=== PATIENT | male | born 1965 | race Caucasian/White ===

== ENCOUNTER 2017-04-08 10:43 | Inpatient (IN) ==
--- NOTE | 2017-04-08 07:36 | Discharge Summary ---
<Annamarie Sosa - Last Filed: 04/08/17 07:33> Date of Encounter: 04/08/17 - Discharge Diagnosis (1) Osteoarthritis of right hip Priority: Primary Status: Chronic Qualifiers: Osteoarthritis type: unspecified Qualified Code(s): M16.11 - Unilateral primary osteoarthritis, right hip (2) Tobacco dependence Priority: Secondary Status: Chronic (3) HLD (hyperlipidemia) Priority: Secondary Status: Chronic Qualifiers: Hyperlipidemia type: unspecified Qualified Code(s): E78.5 - Hyperlipidemia , unspecified (4) Status post total hip replacement, left Priority: Secondary Status: Chronic - Discharge Medications Home Medications: Aspirin Enteric Coated [Aspirin EC] 325 mg PO DAILY #20 tablet. 01/12/15 [Rx] OxyCODONE/APAP 10/325 [Percocet 10/325] 1 each PO Q6HR 01/17/15 [History] Aspirin Enteric Coated [Aspirin EC] 325 mg PO DAILY 21 Days #21 tablet. [Rx] Atorvastatin [Lipitor] 40 mg PO HS 04/08/17 [History] OxyCODONE Immed Rel [Roxicodone 5 MG] 5 mg PO Q6HR PRN 7 Days #28 tablet [Rx] Allergies/Adverse Reactions: 3 Allergy/AdvReac Type Severity Reaction Status Date / Time No Known Allergies Allergy Verified 04/08/17 10:58 Primary care physician: Regan Ba DO - Patient Status Disposition: Home, Self-Care Condition: Good - Discharge Instructions Follow Up With: Regan Ba DO [Primary Care Provider] - - Hospital Course Hospital course: Mr. Sommers is a 51 year old male - Time Spent with Patient Total time spent providing and/or coordinating discharge services: <Philippe Regan - Last Filed: 04/09/17 06:21> Date of Encounter: 04/09/17 Time of Encounter: 06:21 - Discharge Diagnosis (1) Arthritis of left hip Priority: Secondary Status: Chronic (2) Tobacco dependence Priority: Secondary Status: Chronic (3) HLD (hyperlipidemia) Priority: Secondary Status: Chronic Qualifiers: Hyperlipidemia type: unspecified Qualified Code(s): E78.5 - Hyperlipidemia , unspecified (4) Status post total hip replacement, left Priority: Secondary Status: Chronic (5) Osteoarthritis of right hip Priority: Primary Status: Chronic Qualifiers: Osteoarthritis type: unspecified Qualified Code(s): M16.11 - Unilateral primary osteoarthritis, right hip (6) Status post total hip replacement, right Priority: Primary Status: Acute Primary care physician: Regan Ba DO - Patient Status Functional capacity at discharge: uses cane/walker Overall status at discharge: patient is progressing back to baseline - Hospital Course Hospital course: Mr. Sommers is a 51 year old male Status post total hip replacementThe patient had an uneventful postoperative course. They received antibiotics and physical therapy and were discharged in stable condition. There will follow-up in the office in 2 weeks. - Time Spent with Patient Total time spent providing and/or coordinating discharge services:
--- NOTE | 2017-04-08 07:37 | Physician Discharge Referral ---
Home Health/Hosp Referral Info Transfer to: Home Health Attending Provider: Dr Philippe Regan - Diagnosis (1) Osteoarthritis of right hip Priority: Primary Status: Chronic (2) Tobacco dependence Priority: Secondary Status: Chronic (3) HLD (hyperlipidemia) Priority: Secondary Status: Chronic (4) Status post total hip replacement, left Priority: Secondary Status: Chronic (5) Status post total hip replacement, right Priority: Primary Status: Acute - Respiratory Orders Smoking Cessation: Smoking cessation has been advised. For more information, call the [place] Tobacco Quit Line at 9-922-HRGN-NOW. - Dressing/Wound Care Site: right hip Type of Dressing/Treatments w/Frequency: Opsite placed. Keep dressing intact until first follow up appointment. If > 50% saturated, notify office, remove dressing and place appropriate dressing back in place. Leave Zipline intact. Opsite dressing is water resistant, not water- proof. OK to shower, but do not get dressing wet. - Diet/Nutrition Diet/Nutrition Orders: Regular - Activity Activity Orders: Up ad blanca, Ambulate, Chair, Walker Activity: List: Total Hip replacement Precautions Apply cold therapy 3-6x/day for 20 minutes at a time. Encourage ambulation throughout the day and incentive spirometer 10x/hour. Elevate affected extremity as tolerated. Brace: Wear hip abduction pillow when laying/sleeping - Services Needed Following services are medically necessary services: Nursing, Home Health Aide, Physical Therapy, Occupational Therapy - Transfer Medications Prescriptions: OxyCODONE Immed Rel [Roxicodone 5 MG] 5 mg PO Q6HR PRN 7 Days #28 tablet PRN Reason: Pain Aspirin Enteric Coated [Aspirin EC] 325 mg PO DAILY 21 Days #21 tablet. Home Medications: Aspirin Enteric Coated [Aspirin EC] 325 mg PO DAILY #20 tablet. 01/12/15 [Rx] OxyCODONE Immed Rel [Roxicodone 5 MG] 5 - 10 mg PO Q6HR PRN #40 tablet 01/12/15 [Rx] OxyCODONE/APAP 10/325 [Percocet 10/325] 1 each PO Q6HR 01/17/15 [History] Aspirin Enteric Coated [Aspirin EC] 325 mg PO DAILY 21 Days #21 tablet. [Rx] OxyCODONE Immed Rel [Roxicodone 5 MG] 5 mg PO Q6HR PRN 7 Days #28 tablet [Rx] Allergies/Adverse Reactions: 3 Allergy/AdvReac Type Severity Reaction Status Date / Time No Known Allergies Allergy Unverified 11/09/14 09:00 Certification: Further, I certify that my clinical findings support that this patient is homebound (i.e. absences from home require considerable and taxing effort and are for medical reasons or restoration services or infrequently or short duration when for other reasons) because: Homebound Reason: Post-surgery restriction and or conditions limit ability to leave home Attestation: My signature below is to certify that this patient is under my care and that I, or nurse practitioner, or a physician registered dental assistant working with me, has a face-to- face encounter with this patient.
[~2017-04-08 10:43] MED LIST: Ethanol\\Acetic Acid\\Na Ace\\Ben 1,000 ML IRRIG.SOLN IR ONE; Povidone-Iodine 22.5 ML, Sodium Chloride IRRigation 500 ML IR ONE
--- NOTE | 2017-04-08 10:52 | History & Physical Report ---
Date of Encounter: 04/08/17 Time of Encounter: 10:51 24 Hour HP Update - Instructions Instructions: If the History and Physical is less than 30 days old and was completed prior to A.M. admission and or procedure and has NOT been updated on calendar day of procedure please complete this update prior to performing procedure. - Update Patient reports changes in Medical Condition: No Changes in examination, assessment, or condition: No Changes in Medication: No Preop tests/diagnostics Reviewed: Yes Surgery Remains Indicated: Yes Consent for Planned Operative Procedure(s) Verified: Yes - Pre-Operative Checklist Preoperative Checklist Indicated: No Prophylactic Antibiotic Ordered: Yes Is VTE Prophylaxis Indicated?: Yes
[2017-04-08] MEDS ORDERED: Famotidine 20 MG/2 ML VIAL IVP ONE (10:56)
[2017-04-08] MEDS ORDERED: Gabapentin 300 MG CAPSULE PO ONE (10:57)
[2017-04-08] MEDS ORDERED: CeFAZolin Syr 2,000MG/20 ML 2,000 MG/20 ML SYRINGE IVPB ONE (11:10)
[2017-04-08] MEDS ORDERED: Albuterol 2.5 MG/3 ML NEBULIZER IH ONE (11:10)
[2017-04-08] MEDS ORDERED: Ringers Solution, Lactated 1,000 ML IVC SCH ×2 (11:15→15:31)
[2017-04-08] MEDS ORDERED: Ondansetron 4 MG/2 ML VIAL ONE (11:28)
[2017-04-08] MEDS ORDERED: *HR* FentaNYL (PF) 100 MCG/2 ML VIAL ONE (11:28)
[2017-04-08] MEDS ORDERED: Lidocaine -MPF 2% 2 ML VIAL ONE (11:28)
[2017-04-08] MEDS ORDERED: *HR* Succinylcholine 200 MG/10 ML VIAL IVP ONE (11:28)
[2017-04-08] MEDS ORDERED: *HR* Propofol 200 MG/20 ML VIAL IVP ONE (11:28)
[2017-04-08] MEDS ORDERED: *HR* Midazolam HCl 2 MG/2 ML VIAL ONE (11:30)
[2017-04-08] MEDS ORDERED: *HR* Meperidine 25 MG/ML SYRINGE IVP PRN (11:49)
[2017-04-08] MEDS ORDERED: *HR* Labetalol 20 MG/4 ML SYRINGE IVP PRN (11:49)
[2017-04-08] MEDS ORDERED: *HR* Promethazine 25 MG/ML VIAL IVP PRN (11:49)
--- NOTE | 2017-04-08 12:00 | Anesthesia Evaluation PreOp ---
Date of Encounter: 04/08/17 Time of Encounter: 12:00 - Past History Planned Operation: Rt Total Hip Replacement Cardiac History: Hyperlipidemia Pulmonary History: Smoker TUG BOAT CAPTAIN History: Denies Any Significant HX Other Medical History: Denies Any Significant HX Anesthesia History: No Prior Anesthetic Complications Alcohol Use: occasionally Drug use: none Medications and Allergies Aspirin Enteric Coated [Aspirin EC] 325 mg PO DAILY #20 tablet. 01/12/15 [Rx] OxyCODONE/APAP 10/325 [Percocet 10/325] 1 each PO Q6HR 01/17/15 [History] Aspirin Enteric Coated [Aspirin EC] 325 mg PO DAILY 21 Days #21 tablet. [Rx] Atorvastatin [Lipitor] 40 mg PO HS 04/08/17 [History] OxyCODONE Immed Rel [Roxicodone 5 MG] 5 mg PO Q6HR PRN 7 Days #28 tablet [Rx] 3 Allergy/AdvReac Type Severity Reaction Status Date / Time No Known Allergies Allergy Verified 04/08/17 10:58 - Meds/Allergy Pre-op Review Medications Reviewed: Yes Allergies Reviewed: Yes Beta Blockers on Current Med List: No Anesthesia Results - Labs Laboratory Tests 04/03/17 04/03/17 08:49 08:49 Hgb 16.3 Hct 50.1 Plt Count 290 Sodium 138 Potassium 4.0 BUN 9 Creatinine 0.86 - Imaging EKG: pending Anesthesia Exam O2 Sat Height 1.74 m Height 1.73 m Height 1.74 m Weight 82.554 kg Weight 82.554 kg Weight 82.554 kg O2 Sat by Pulse Oximetry 98 O2 Sat by Pulse Oximetry 98 Vital Signs Temp Pulse Resp BP Pulse Ox 97.8 F 72 18 120/77 98 04/08/17 10:57 04/08/17 10:57 04/08/17 10:57 04/08/17 10:57 04/08/17 10:57 Height: 5'8 Weight: 182 lbs NPO (# of Hours): MN Pain Scale: 0 - HEENT Pupil (Motor): Pupils equal, EOMI Mallampati: III Teeth: Normal Oral Opening: Less than or equal to 3 - TUG BOAT CAPTAIN LOC: Oriented TUG BOAT CAPTAIN Motor: Normal RUE, Normal LUE, Normal RLE, Normal LLE, Normal Face TUG BOAT CAPTAIN Sensory: Normal: RUE, LUE, RLE, LLE, Face - Cardiac Rhythm: Regular Murmur: None JVD: No Carotid Bruit: No - Pulmonary Breath Sounds: bilateral Clear Respiratory Effort: Symmetrical Anesthesia Assess/Plan ASA Score: 2 Modified [place] Scale for Level of Consciousness: Cooperative, oriented, and tranquil Anesthetic Plan: General, Regional Monitoring Plan: Standard Monitors Recovery Plan: PACU (Discussed GA and RA, agrees to proceed)
[2017-04-08] MEDS ORDERED: Bupivacaine/Clonidine Syringe 1 EACH SYRINGE ONE (12:19)
--- NOTE | 2017-04-08 12:46 | Anesthesia Procedures ---
Date of Encounter: 04/08/17 Time of Encounter: 12:35 Procedures: Anesthesia - Nerve Block Procedure Date: 04/08/17 Time: 12:35 Surgical Procedure: right robotic total hip Checklist: Correct Patient Identifier, Correct procedure, History checked Correct side: Right Blood Thinner: No Monitor Applied: BP, Pulse Oximetry Supplemental Oxygen via Nasal Cannula (L/min): 2 Sedation: Versed (mg): 2 Sedation: Fentanyl (mcg): 100 Indication: Post Op Analgesia Pre-op Neuro Deficits: No Block Type: Other Catheter placed: No Sterile Technique: Yes Ultrasound used: Yes Anatomy identified: Yes Visual spread of Local: Yes Neuro Stimulation: No Blood on Needle Aspiration: No Smooth Injection of Local: Yes Pain with Injection of Local: No Prep: Chlorhexadine Needle: 22 x 50 mm Stimuplex Local: 0.25% Bupivicaine w/Clonidine 20 mcg/cc Volume (cc): 60 Number of Attempts: 1 Complications: None/effective block Vitals: vss
[2017-04-08] MEDS ORDERED: Ketorolac 30 MG/ML VIAL ONE (13:10)
[2017-04-08] MEDS ORDERED: *HR* HYDROmorphone 2 MG/ML SYRINGE ONE (13:17)
[2017-04-08] MEDS ORDERED: Lidocaine -MPF 4% 5 ML AMPUL ONE (13:31)
--- NOTE | 2017-04-08 13:52 | Orthopedic Operative Note ---
Date of procedure: 04/08/17 Pre-op diagnosis: Right hip arthritis Post-op diagnosis: same Procedure: Procedure: Total Hip Replacment robotic-assisted Estimated blood loss: 200 cc Hardware: Metal and polyethylene replacement. Ginette DM Cup: cup Femoral size stem Head: head with Lorna Procedural Notes: Grade 4 arthritic changes femoral head acetabular socket, procedure performed with robotic assistance. Preoperatively operative leg 2 mm shorter than nonoperative leg. As measured by CT scan Operative procedure: The patient was brought to the operating room and placed on the operating room table. After general anesthesia was administered the patient was placed in the lateral decubitus position with the operative leg up. All pressure points were padded appropriately and the head was stabilized in the neutral position. The operative extremity was prepped and draped in the sterile surgical fashion patient received IV antibiotic prior to skin incision. 3 Steinmann pins were placed in the iliac crest 3 cm proximal to the anterior superior iliac spine this was for the robotic-assisted sensor. This was done through a small 2 cm incision. A standard posterior approach is made to the operative hip, the incision was made through the skin and subcutaneous tissue hemostasis was obtained with Bovie cautery. Using careful sharp dissection the fascia was identified and incised exposing the external rotators. The femoral checkpoint was placed leg length was measured at this time utilizing robotic assistance. The external rotators were released off the greater trochanter and tagged with # 2 FiberWire suture. The capsule was T'd open and the hip was brought into internal rotation. Patient noted to have grade 4 arthritic changes femoral head. The femoral neck cut was made at the appropriate level roughly 18 mm proximal to the lesser trochanter aced on preoperative templating. An anterior capsulotomy was performed for the anterior retractor. Soft tissues removed from the acetabulum. Patient noted to have grade 4 arthritic changes acetabulum. The acetabulum checkpoint was placed confirmed. The acetabulum was then mapped with robotic assistance. Based on the preoperative plan the acetabulum was reamed in one step with a 53 reamer. The 54 acetabulum was impacted with robotic assistance and 42 degrees of abduction and 16 degrees of anteversion. The hip was brought back in to internal rotation and prepared with the dry box tender followed by the canal finder followed by the reaming process to a size 8 broaching process in 20 degrees anteversion. It was broached up to the appropriate size 8. Trial reduction revealed leg lengths close to normal. The femoral implant was impacted in place in 20 degrees of anteversion. Trial reduction found the hip to be stable with 8 head and Lorna. The trials were removed and the real implants were impacted in place. The hip was reduced, patient had robotic confirmed leg length of 3 mm longer than the contralateral side. The hip had excellent stability with forward flexion to 90 degrees adduction of 30 degrees and internal rotation of 60 degrees. The hip had no shuck. The hips after 2 minutes with a Betadine saline solution. It was irrigated out with 2 L of pulse irrigation. The checkpoints were removed, Steinmann pins were removed. The pain incision and the hip were closed by the PA. The deep tissue was irrigated and closed deep with #1 PDS suture superficially with 0 PDS suture and skin was closed with Dermabond and zip tie. The patient was placed in a sterile dressing and abduction pillow. The patient was extubated and transferred to the recovery room in stable condition. Anesthesia: GETA Surgeon: Philippe Regan (37) Was there an occupational therapy assistant present: Yes Care Director: Annamarie Sosa Estimated blood loss (cc): 300 Condition: stable Disposition: PACU
[2017-04-08] MEDS: *HR* HYDROmorphone (PF) 1 MG/ML SYRINGE IVP PRN ×4 (14:26→14:41)
--- NOTE | 2017-04-08 15:16 | Anesthesia Evaluation Post Op ---
Date of Encounter: 04/08/17 Time of Encounter: 15:20 - Vital Signs Vital Signs: Vital Signs/O2 Sat/Glucose, Most Current Temp Pulse Resp BP Pulse Ox 04/08/17 15:12 60 14 121/80 93 04/08/17 15:02 68 19 129/84 95 04/08/17 14:52 97.9 F 61 14 143/94 95 04/08/17 14:42 66 15 134/86 94 04/08/17 14:32 70 14 142/83 96 04/08/17 14:22 97.7 F 64 12 130/80 97 04/08/17 12:25 64 119/80 96 - Lungs Lungs: Clear Ascult./Percussion - Airway Airway: Non-obstructed - Cardiovascular Regular Rate - Mental Status Mental Status: Alert & Oriented, Answers Appropriately - Pain Pain Scale: 1 - Nausea Vomiting Nausea Vomiting: Not Present - Hydration Hydration: Ice chips - Discharge PostOp Status: Transfer Patient to floor
[2017-04-08] MEDS ORDERED: Ondansetron 4 MG/2 ML VIAL IVP PRN (15:31)
[2017-04-08] MEDS ORDERED: Sennosides 8.6 MG TABLET PO PRN (15:31)
[2017-04-08] MEDS ORDERED: Temazepam 15 MG CAPSULE PO PRN (15:31)
[2017-04-08] MEDS ORDERED: *HR* OxyCODONE Immed Rel 5 MG TABLET PO PRN (15:31)
[2017-04-08] MEDS ORDERED: Naloxone 0.4 MG/ML INJ IVP PRN (15:31)
[2017-04-08] MEDS ORDERED: MOM Conc 10 ML UD.LIQ PO PRN (15:31)
[2017-04-08] MEDS ORDERED: *HR* HYDROmorphone (PF) 1 MG/ML SYRINGE IVP PRN (15:31)
[2017-04-08 15:41] LABS: Hematocrit 41.3 % (37.5-50.1)
[2017-04-08 15:47] LABS: Hemoglobin 13.8 g/dL (12.9-16.9)
[2017-04-08] MEDS: *HR* OxyCODONE Immed Rel 5 MG TABLET PO PRN ×2 (15:54→23:08)
[2017-04-08] MEDS ORDERED: CeFAZolin Premix DUPLEX 2,000 MG/50 ML BAG IVPB SCH (16:00)
[2017-04-08] MEDS: *HR* Enoxaparin 30 MG/0.3 ML SYRINGE SQ SCH (17:26)
[2017-04-08] MEDS: Ascorbic Acid 500 MG TABLET PO SCH (17:27)
[2017-04-08] MEDS ORDERED: *HR* Enoxaparin 30 MG/0.3 ML SYRINGE SQ SCH (18:00)
[2017-04-08] MEDS: Nicotine 21 MG PATCH.TD24 TD SCH (18:06)
[2017-04-09] MEDS ORDERED: CeFAZolin Premix DUPLEX 2,000 MG/50 ML BAG IVPB SCH
[2017-04-09] MEDS: *HR* OxyCODONE Immed Rel 5 MG TABLET PO PRN ×3 (03:13→11:45)
[2017-04-09] MEDS: *HR* Enoxaparin 30 MG/0.3 ML SYRINGE SQ SCH (05:35)
--- NOTE | 2017-04-09 06:22 | Orthopedics Progress Note ---
Date of Encounter: 04/09/17 Time of Encounter: 06:22 - Assessment and Plan (1) Arthritis of left hip Current Visit: No Status: Chronic (2) Tobacco dependence Current Visit: No Status: Chronic (3) HLD (hyperlipidemia) Current Visit: No Status: Chronic Qualifiers: Hyperlipidemia type: unspecified Qualified Code(s): E78.5 - Hyperlipidemia , unspecified (4) Status post total hip replacement, left Current Visit: No Status: Chronic (5) Osteoarthritis of right hip Current Visit: No Status: Chronic Qualifiers: Osteoarthritis type: unspecified Qualified Code(s): M16.11 - Unilateral primary osteoarthritis, right hip (6) Status post total hip replacement, right Current Visit: No Status: Acute Subjective Interval history: Patient was seen this morning doing well without complaints. Afebrile vital signs stable. Operative extremity: Neurovascularly intact Dressing clean dry and intact Calves nontender Assessment and plan: Continue with postoperative care Discharged today Objective Vital signs: Vital Signs Temp Pulse Resp BP Pulse Ox 04/09/17 04:10 98.1 F 71 18 134/77 96 04/09/17 00:40 97.7 F 82 16 124/83 96 04/08/17 19:43 97.6 F 77 17 121/81 96 04/08/17 17:09 98.5 F 74 16 122/81 04/08/17 16:15 97.8 F 60 16 122/77 96 04/08/17 15:50 97.8 F 65 16 113/79 04/08/17 15:33 97.8 F 69 14 132/80 97 04/08/17 15:22 98.3 F 61 13 112/70 93 04/08/17 15:12 60 14 121/80 93 04/08/17 15:02 68 19 129/84 95 04/08/17 14:52 97.9 F 61 14 143/94 95 04/08/17 14:42 66 15 134/86 94 04/08/17 14:32 70 14 142/83 96 04/08/17 14:22 97.7 F 64 12 130/80 97 04/08/17 12:25 64 119/80 96 04/08/17 11:01 97.8 F 72 18 120/77 98 04/08/17 10:57 97.8 F 72 18 120/77 98 Intake and Output 04/08/17 04/08/17 04/09/17 15:59 23:59 07:59 Intake Total 220 / 220 820 / 820 Output Total 300 / 300 200 / 200 400 / 400 Balance -300 / -300 20 / 20 420 / 420 Intake: IV Fluids 50 / 50 50 / 50 Ancef Premix DUPLEX 2,000 mg In 50 / 50 50 / 50 50 ml @ 333.333 mls/hr IVPB Q8H JONO Rx#:[id number] Oral 170 / 170 770 / 770 Output: Urine 200 / 200 400 / 400 Estimated Blood Loss 300 / 300 Other: Weight 82.554 kg 87 kg Patient Weight 04/09/17 23:59 Weight 87 kg - Labs CBC & BMP: 04/08/17 15:10 - VTE Documentation of Mechanical Device: Venous foot pump, device Consult Discharge Plan - Plan Referrals: Regan Ba DO [Primary Care Provider] -
[2017-04-09 06:34] LABS: Hematocrit 33.3 % (37.5-50.1)
[2017-04-09 06:35] LABS: Hemoglobin 11.3 g/dL (12.9-16.9)
[2017-04-09] MEDS: Ascorbic Acid 500 MG TABLET PO SCH (07:39)
[2017-04-09] MEDS: Nicotine 21 MG PATCH.TD24 TD SCH (07:39)
[2017-04-09] MEDS ORDERED: Multivit/Ca/Min/Fe/FA 1 TAB TABLET PO SCH (09:00)
[2017-04-09 09:18] LABS: BUN/Creatinine Ratio 14 (6-26); Blood Urea Nitrogen 11 mg/dL (6-20); Calcium 8.3 mg/dL (8.6-10.3); Carbon Dioxide 25 mEq/L (23-29); Chloride 105 mEq/L (98-107); Glucose 150 mg/dL (70-105); Osmolality,Calculated 280 (280-300); Potassium 4.2 mEq/L (3.5-5.1); Sodium 134 mEq/L (136-145); eGFR For African Americans > 60 (> 60); eGFR For Non-African Americans > 60 (> 60)
[2017-04-09 10:54] VITALS: BP 123/74
[2017-04-09] MEDS ORDERED: FLUARIX QUAD 2017-18 36MOS UP/PF 0.5 ML SYRINGE IM ONE (11:00)
== END 2017-04-09 12:32 | disposition home health service (06) | DRG 301 ==
LOC: SAMDAY 10:43 → 3NENU 15:32
PROVIDERS: ADMIT Orthopaedic Surgery; ATTEND Orthopaedic Surgery